=== PATIENT | female | born 1950 | race Caucasian/White ===

== ENCOUNTER 2018-01-30 13:56 | Observation (INO) | payer MEDICARE ==
[2018-01-30] MEDS ORDERED: Senokot S 8.6-50 MG TAB PO PRN (14:28)
[2018-01-30] MEDS ORDERED: Acetaminophen 325 MG TAB PO PRN (14:28)
[2018-01-30] MEDS ORDERED: Ondansetron PF 4 MG/2 ML Vial IVP PRN (14:28)
[2018-01-30] MEDS ORDERED: hydrALAZINE 20 MG/ML VIAL SLOW IVP PRN (14:28)
[2018-01-30] MEDS ORDERED: Dextrose 50% Abboject 50 ML SYRINGE SLOW IVP PRN (14:28)
[2018-01-30] MEDS ORDERED: Dextrose 5% in Water 1,000 ML IV PRN (14:28)
[2018-01-30] MEDS ORDERED: Ondansetron ODT 4 MG TAB PO PRN (14:28)
[2018-01-30] MEDS ORDERED: Insulin Regular 300 UNITS/3 ML VIAL SC PRN ×2 (14:28)
[2018-01-30] MEDS ORDERED: Lorazepam 1 MG TAB PO PRN (16:51)
[2018-01-30] MEDS ORDERED: Polyethylene Glycol 3350 17 GM Packet PO PRN (17:00)
[2018-01-30] MEDS ORDERED: Eucerin (Mineral Oil/Petrolatum,White) 30 gm Jar TOP PRN (17:00)
[2018-01-30] MEDS ORDERED: Meclizine HCl 25 MG TAB PO SCH (17:00)
[2018-01-30] MEDS: Meclizine HCl 25 MG TAB PO SCH ×2 (17:16→21:39)
[2018-01-30] MEDS: Sodium Chloride 0.9% 1,000 ML IV SCH ×2 (17:26→22:58)
--- NOTE | 2018-01-30 17:28 | HP ---
DATE OF ADMISSION: 01/30/2018 PRIMARY CARE PHYSICIAN: Dr. Rowe at [facility]. CHIEF COMPLAINT: Stroke-like symptoms. HISTORY OF PRESENT ILLNESS: The patient is a 67-year-old female with hypertension, diabetes mellitus type 2, hyperlipidemia, and family history of heart disease who presented to the emergency room at [facility] with sudden onset of dizziness and vertigo that started this morning around 7:30 a.m. when sh e woke up. Her symptoms progressively got worse. She had one episode of vomiting. She had persiste nt vertigo despite staying still. She had mild generalized headache without any photophobia, phonoph obia, double vision, blurring of vision, facial asymmetry, weakness, numbness of any of her extremiti es. No sensory deficits reported. She denies any seizures. No slurring of speech reported. Over t he last 3-4 weeks, she gets occasional lightheadedness and dizziness especially when she stands up. She never had any similar symptoms in the past. She takes 81 mg aspirin on a daily basis. PAST MEDICAL HISTORY: 1. Hypertension. 2. Diabetes mellitus type 2. 3. Hyperlipidemia. 4. Family history of heart disease. 5. Migraine headaches. PAST SURGICAL HISTORY: Dental surgery. ALLERGIES: Patient is allergic to IODINE. SOCIAL HISTORY: Patient currently lives at home. She makes her own decision with the help of her kit gill. No smoking, alcohol or drug use. FAMILY HISTORY: Positive for heart disease. REVIEW OF SYSTEMS: The following complete review of systems was negative, unless otherwise mentioned in the HPI or below: Constitutional: Weight loss or gain, ability to conduct usual activities. Skin: Rash, itching. Eyes: Double vision, pain. ENT/Mouth: Nose bleeding, neck stiffness, pain, tenderness. Cardiovascular: Palpitations, dyspnea on exertion, orthopnea. Respiratory: Shortness of breath, wheezing, cough, hemoptysis, fever or night sweats. Gastrointestinal: Poor appetite, abdominal pain, heartburn, nausea, vomiting, constipation, or diarr hea. Genitourinary: Urgency, frequency, dysuria, nocturia. Musculoskeletal: Pain, swelling. Neurologic/Psychiatric: Anxiety, depression. Allergy/Immunologic: Skin rash, bleeding tendency. CURRENT HOME MEDICATIONS: Metformin 500 mg twice a day, aspirin 81 mg daily, lisinopril 10 mg daily, Crestor 10 mg at bedtime, potassium chloride 10 mEq daily, metformin 500 mg twice a day. PHYSICAL EXAMINATION: VITAL SIGNS: In the emergency room showed temperature 97.6, pulse rate of 68, blood pressure 137/65, respirations 16, O2 saturation 95% on room air, blood pressure 137/65. GENERAL: A 67-year-old female in no apparent distress. Her symptoms have somewhat improved. HEENT: Head is atraumatic, normocephalic. Sclerae are anicteric. Moist mucous membrane, no oral le sharmin. NECK: Supple, no JVD appreciated. No carotid bruit. LUNGS: Clear to auscultation bilaterally, no wheezing, rales or rhonchi. HEART: S1 and S2 present. Regular rate and rhythm. No murmur, rubs, or gallops appreciated. ABDOMEN: Soft, nontender, bowel sounds present. EXTREMITIES: No edema or calf tenderness. NEUROLOGIC: Cranial nerves II-XII were normal on examination. Power was 5/5 in all extremities. Fi qvra-ej-coey test was normal. Sensation to touch was normal bilaterally. Gait was somewhat slow; ho wever, no ataxia noted. PSYCHIATRIC: The patient is alert, awake, oriented x3. SKIN: Warm and dry. LYMPH NODES: No palpable lymph nodes in the neck. PERIPHERAL VASCULAR: Radial pulses palpable bilaterally. MUSCULOSKELETAL: No joint swelling or tenderness. LABORATORY DATA AND IMAGING DATA: CBC showed WBC of 13.3, hemoglobin 14.1, hematocrit 40.8, platelet of 231. Chemistry showed sodium 138, potassium 3.8, chloride 102, bicarbonate 26, BUN 19, creatinin e 0.77. Calcium was 10.6. LFTs in normal range. Troponin was negative. CT scan of the brain by my review was negative for acute findings. EKG by my review showed sinus rhythm without significant ST -T wave changes. IMPRESSION AND PLAN: 1. A 67-year-old female with diabetes, hypertension, hyperlipidemia, and family history of heart dis ease presenting with new onset of dizziness, vertigo with nausea, vomiting. Symptoms are suspicious for CVA. Other possibility could be basilar migraine versus positional vertigo. We will obtain an M RI of the brain with internal auditory canals in a.m. We will also get echocardiogram. We will incr ease aspirin to 325 mg for now. Will get frequent neuro checks. We will consult Neurology, Dr. Alley mera. We will also rule out orthostatic hypotension. 2. Diabetes mellitus type 2. We will hold metformin and start insulin sliding scale. 3. Hypertension. We will hold lisinopril for now for permissive hypertension. 4. Chronic kidney disease stage 2 with mild dehydration. We will start her on IV fluids. 5. IODINE allergy. 6. Leukocytosis without any obvious infectious etiology. 7. Hyperlipidemia. We will continue statins. 8. DVT prophylaxis with Lovenox. Plan of care was discussed with the patient in detail. She stated understanding. We will get fastin g lipid profile and check folic acid and vitamin B12 in a.m.
[2018-01-30 18:03] VITALS: BMI 24.3
[2018-01-30] MEDS ORDERED: Atorvastatin Calcium 40 MG TAB PO SCH (21:00)
[2018-01-30] MEDS ORDERED: Rosuvastatin 10 MG TAB PO SCH (21:00)
[2018-01-30] MEDS: Famotidine 20 MG TAB PO SCH (21:39)
[2018-01-31 04:39] LABS: Cardiac Risk 4.3 (Less than 4.5)
[2018-01-31 05:06] LABS: Folate (Folic Acid) 12.3 ng/mL (7.0-31.4)
[2018-01-31] MEDS: Sodium Chloride 0.9% 1,000 ML IV SCH (06:18)
[2018-01-31] MEDS: Famotidine 20 MG TAB PO SCH (08:57)
[2018-01-31] MEDS: Meclizine HCl 25 MG TAB PO SCH ×2 (08:58→16:28)
[2018-01-31] MEDS ORDERED: Aspirin 325 mg Enteric Coated Tablet PO SCH (09:00)
[2018-01-31] MEDS ORDERED: Enoxaparin Sodium 40 MG/0.4 ML SYRINGE SC SCH ×2 (09:00→21:00)
[2018-01-31] MEDS ORDERED: Lorazepam 2 MG/ML VIAL SLOW IVP PRN (09:49)
--- NOTE | 2018-01-31 14:28 | CON ---
DATE OF CONSULTATION: 02/01/2018 NEUROLOGY CONSULTATION CONSULTING PHYSICIAN: [facility]. IMPRESSION: Vestibular migraine versus vestibular neuronitis. MRI of the brain is normal. PLAN: The patient can take meclizine as needed for dizziness. HISTORY OF PRESENT ILLNESS: Ms. Phillips is a 67-year-old white female with a long history of migra ine headaches. She has had some intermittent vertigo in the past. Most of these attacks were fairly mild and she just ignored them. She had a more intense vertigo yesterday that was associated with s ome nausea and vomiting. She had a headache on the top of her head. She denied any prodromal illnes s. She did not note any new tinnitus or hearing loss. There were no focal neurologic symptoms assoc iated with it. The intensity of the symptoms have improved quite a bit. She was admitted for furthe r evaluation. Her vital signs have been stable and she has been afebrile. MRI of the brain was revi ewed and appears normal. PAST MEDICAL HISTORY: Migraine. SOCIAL HISTORY: No tobacco or alcohol use. ALLERGIES: IODINE. FAMILY HISTORY: Noncontributory. REVIEW OF SYSTEMS: No chest pain, shortness of breath, lateralized weakness or numbness. PHYSICAL EXAMINATION: VITAL SIGNS: Blood pressure 114/58, pulse 76, respirations 16, temperature 98.6. HEENT: Pupils equal and reactive. Conjunctivae clear. Oropharynx is clear. NECK: Supple, no lymphadenopathy noted. EXTREMITIES: No cyanosis, clubbing or edema. NEUROLOGIC: She is alert and appropriate. Her speech is fluent and clear. Cranial nerves were inta ct with some mild right beating nystagmus and right gaze. Motor exam showed symmetric strength. The re was no tremor or dysmetria present. She can walk independently. Sensation is intact to light octavio ch. LABORATORY STUDIES: Lipid panel showed a ratio of 4.3, B12 was 1213, folate 12.3, glucose 124. SUMMARY: This is a 67-year-old woman with acute vertigo and no remarkable findings on exam other tamica n nystagmus and a normal MRI of the brain. This appears to be a benign peripheral process, nothing f urther needs to be done. She can be discharged home.
[2018-01-31 15:40] VITALS: BP 112/53; TEMP 98.7
--- NOTE | 2018-02-01 08:23 | MRI ---
BRAIN MRI WITH AND WITHOUT CONTRAST MRI IAC WITH AND WITHOUT CONTRAST: INDICATION: Altered mental status. Persistent dizziness and nausea. COMPARISON: Reference is made to head CT of previous day. FINDINGS: Ventricular system is normal in size. There is no mass effect or midline shift. There are scattered punctate signal abnormalities of the cerebral white matter indicating minimal chronic ischemic disea se. No acute territorial infarction. There is motion artifact which limits detail. No evidence of an enhancing intraaxial mass. Thin section imaging through the internal auditory canals reveals no evidence of pathologic enhanceme nt or obvious mass effect. IMPRESSION: 1. No acute intracranial abnormalities. 2. No evidence of pathologic enhancement or mass effect of either internal auditory canal. POS: [facility]
--- NOTE | 2018-02-01 21:37 | DIS ---
DATE OF ADMISSION: 01/31/2018 DISCHARGE DISPOSITION: Home. FOLLOWUP: Follow up with primary care physician, Dr. Rowe at [facility] in 1 week. Follow up [facility] ENT, Dr. Giancarlo Olivera for peripheral vertigo. ALLERGIES: Patient is allergic to IODINE. Patient was seen on the day of discharge, denies any new complaints, no chest pain, shortness of romi th, or palpitations. BRIEF HOSPITAL COURSE: Patient is a 67-year-old female with hypertension, diabetes mellitus type 2, hyperlipidemia, and family history of heart disease presented to the hospital with sudden onset of di zziness and vertigo that started on the day around 7:30 a.m. when she woke up. Her symptoms progress ively got worse, for which she presented to the emergency room. She was admitted to the stroke unit with a diagnosis of suspected TIA. She was started on aspirin. She underwent an MRI of the brain wi and without contrast with internal auditory canals that was essentially negative. Echocardiogram showed left ventricular ejection fraction of 55%-60% with diastolic dysfunction, mild mitral regurgit ation, mild tricuspid regurgitation. There was no thrombus noted in the cardiac chambers with normal size left atrium. Patient was also seen by neurology, Dr. Sprague. According to Dr. Sprague, robert locke probably has vestibular migraine. Dr. Sprague recommended meclizine as needed for dizziness. All other home medications were left, unchanged including 81 mg aspirin. She has been cleared by caroline guadarrama for discharge. She was advised to follow up with [facility]NT Clinic as outpatient. FINAL DIAGNOSES: 1. Sudden onset of dizziness and vertigo consistent with vestibular migraine/peripheral vertigo. 2. Diabetes mellitus, type 2. 3. Hypertension. 4. Chronic kidney disease, stage 2 with mild dehydration. 5. IODINE allergy. 6. Leukocytosis unlikely to be infectious. 7. Hyperlipidemia. Plan of care was discussed with the patient in detail. She stated understanding.
== END 2018-01-31 18:30 | disposition home or self-care (01) ==
LOC: ERS 13:56 → 2SE 16:31
PROVIDERS: ADMIT Internal Medicine; ATTEND Internal Medicine
DX: R42 Dizziness and giddiness (principal); I12.9 Hypertensive chronic kidney disease with stage 1 through stage 4 chronic kidney disease, or unspecified chronic kidney disease; E11.22 Type 2 diabetes mellitus with diabetic chronic kidney disease; N18.2 Chronic kidney disease, stage 2 (mild); E86.0 Dehydration; E78.5 Hyperlipidemia, unspecified; G43.909 Migraine, unspecified, not intractable, without status migrainosus; D72.829 Elevated white blood cell count, unspecified; Z79.82 Long term (current) use of aspirin; Z79.84 Long term (current) use of oral hypoglycemic drugs; Z79.899 Other long term (current) drug therapy; Z91.041 Radiographic dye allergy status
CPT/HCPCS: 70553; 80061; 82607; 82746; 82962 ×2; 93306; 96374; 96375; 97139 ×2; 99285; G0378 ×2; G8978; G8979; 36415; 36416; J2060; J2405

== ENCOUNTER 2018-05-12 10:46 | Outpatient (CLI) | payer MEDICARE | END 2018-05-12 10:47 | disposition home or self-care (01) | LOC: BICMAMMO 10:46 | PROVIDERS: ATTEND Family Medicine | DX: Z12.31 Encounter for screening mammogram for malignant neoplasm of breast (principal); Z80.3 Family history of malignant neoplasm of breast | CPT/HCPCS: 77063; 77067 ==

== ENCOUNTER 2018-09-21 10:29 | Outpatient (CLI) | payer MEDICARE ==
--- NOTE | 2018-09-21 12:00 | RAD ---
2 VIEWS LEFT HIP: Date: 09/21/18 PROVIDED CLINICAL HISTORY: Left hip pain. FINDINGS: No evidence for fracture or other acute osseous abnormality. Alignment appears anatomic. Left hip monae nt space appears preserved. IMPRESSION: No evidence for acute osseous abnormality or significant arthropathy. POS: OFF
--- NOTE | 2018-09-21 12:01 | RAD ---
LEFT KNEE RADIOGRAPHS 3 VIEWS: Date: 09/21/18 PROVIDED CLINICAL HISTORY: Left knee pain. FINDINGS: No evidence for fracture or other acute osseous abnormality. Small osteophytes about the knee. Promin ent patellofemoral joint space loss with mild knee joint capsular distention. Alignment appears anato monica. Femorotibial joint compartments appear preserved. IMPRESSION: Degenerative arthrosis involving the left knee with preferential involvement of the patellofemoral co mpartment. POS: OFF
--- NOTE | 2018-09-21 12:02 | RAD ---
RIGHT KNEE RADIOGRAPHS 3 VIEWS: Date: 09/21/18 PROVIDED CLINICAL HISTORY: Right knee pain. FINDINGS: No evidence for fracture or other acute osseous abnormality. Alignment appears anatomic. Joint spaces appear preserved. Osteophytes are seen about the knee. No definite knee joint capsular distention. IMPRESSION: Mild degenerative arthrosis of the right knee. POS: OFF
== END 2018-09-21 10:30 | disposition home or self-care (01) ==
LOC: BICRAD 10:29
PROVIDERS: ATTEND Specialist
DX: M25.562 Pain in left knee (principal); M25.561 Pain in right knee; M25.552 Pain in left hip; M17.0 Bilateral primary osteoarthritis of knee

== ENCOUNTER 2018-09-27 09:15 | Outpatient (CLI) | payer MEDICARE ==
--- NOTE | 2018-09-27 12:59 | BD ---
DEXA BONE DENSITY STUDY: HISTORY: Postmenopausal. FINDINGS: Lumbar Spine: BMD (g/cm2) L1 0.685 T-Score: -2.8 L2 0.804 T-Score: -2.0 L3 0.773 T-Score: -2.8 L4 1.131 T-Score: +0.6 L1-L4 0.858 T-Score: -1.7 Femoral Neck: 0.639 T-Score: -1.9 Total Femur: 0.802 T-Score: -1.1 Impression: Osteopenia of the left femoral neck and lumbar spine. POS: [facility]
== END 2018-09-27 09:16 | disposition home or self-care (01) ==
LOC: BICMAMMO 09:15
PROVIDERS: ATTEND Specialist
DX: Z13.820 Encounter for screening for osteoporosis (principal); M25.562 Pain in left knee; M25.561 Pain in right knee; M25.552 Pain in left hip; M85.89 Other specified disorders of bone density and structure, multiple sites
CPT/HCPCS: 77080

== ENCOUNTER 2020-11-29 10:36 | Outpatient (CLI) | payer MEDICARE, OTHER | END 2020-11-29 10:37 | disposition home or self-care (01) | LOC: BICMAMMO 10:36 | PROVIDERS: ATTEND Specialist | DX: Z12.31 Encounter for screening mammogram for malignant neoplasm of breast (principal); M19.90 Unspecified osteoarthritis, unspecified site; M85.89 Other specified disorders of bone density and structure, multiple sites; Z80.3 Family history of malignant neoplasm of breast | CPT/HCPCS: 77063; 77067; 77080 ==

== ENCOUNTER 2022-03-10 09:29 | Outpatient (CLI) | payer MEDICARE, OTHER | END 2022-03-10 09:30 | disposition home or self-care (01) | LOC: BICMAMMO 09:29 | PROVIDERS: ATTEND Nurse Practitioner Family | DX: M85.89 Other specified disorders of bone density and structure, multiple sites (principal) | CPT/HCPCS: 77080 ==

== ENCOUNTER 2022-04-21 12:45 | Outpatient (CLI) | payer MEDICARE, OTHER | END 2022-04-21 12:46 | disposition home or self-care (01) | LOC: BICMAMMO 12:45 | PROVIDERS: ATTEND Nurse Practitioner Family | DX: Z12.31 Encounter for screening mammogram for malignant neoplasm of breast (principal); N64.89 Other specified disorders of breast; Z80.3 Family history of malignant neoplasm of breast | CPT/HCPCS: 77063; 77067 ==

== ENCOUNTER 2022-11-07 09:55 | Outpatient (CLI) | payer MEDICARE, OTHER | END 2022-11-07 09:56 | disposition home or self-care (01) | LOC: RAD 09:55 | PROVIDERS: ATTEND Internal Medicine Rheumatology | DX: M17.0 Bilateral primary osteoarthritis of knee (principal) | CPT/HCPCS: 73565 ==

== ENCOUNTER 2024-05-05 11:10 | Outpatient (CLI) | payer MEDICARE, OTHER | END 2024-05-05 11:11 | disposition home or self-care (01) | LOC: BICMAMMO 11:10 | PROVIDERS: ATTEND Specialist | DX: M85.89 Other specified disorders of bone density and structure, multiple sites (principal) | CPT/HCPCS: 77080 ==